=== PATIENT | female | born 1980 | race Caucasian/White ===

== ENCOUNTER 2016-12-16 06:59 | Emergency (ER) | payer OTHER ==
[~2016-12-16] VITALS: Ht 175.3 cm; Wt 100.0 kg
[2016-12-16 07:05] VITALS: BP 141/90; PULSE 72; RESP 20; O2SAT 99
--- NOTE | 2016-12-16 07:26 | ED.REPORT ---
HPI-Abd Pain F Under 40 Date of Service Dec 16, 2016 ED Provider: Jeremiah Mart MD Pt is a 35 year old female with a hx of DM, endometriosis, and extensive hx of kidney stones who presents to the ED with concerns for flnak pain, onset 0500 this morning. She reports that the pain is sharp and located in her left flank and is worsened with urinating. Nothing is able to alleviate the pain. She reports that this pain feels similar to the kidney stones that she has had in the past. Pt reports that she has required multiple surgeries in the past for kidney stones. She admits to nausea, but denies any fevers, vomiting, chest pain , shortness of breath, diarrhea or any other symptoms. Nursing Notes Stated Complaint: LEFT ABDOMINAL PAIN Chief Complaint: Female Abdominal Pain Nursing Notes Reviewed: Yes ([employer] not reconciled) Allergies: Coded Allergies: Penicillins (Verified Allergy, Unknown, hives and vomiting, 12/16/16) Scheduled Tamsulosin (Flomax) 0.4 Mg Capsule 0.4 MG PO DAILY Scheduled PRN Ondansetron ODT (Ondansetron ODT) 8 Mg Tab.rapdis 8 MG PO Q4H PRN PRN For Nausea oxyCODONE-Acetaminophen 5-325 mg (oxyCODONE-Acetaminophen 5-325 mg) 1 Each Tablet 1-2 TAB PO Q6H PRN PRN For Pain General Time Seen by MD: 07:19 Chief Complaint Flank pain left Hx Obtained From: Patient Arrived By: Walk-in Sudden in Onset?: Yes Onset Occurred: 1 - 4 hours ago Symptom Duration: Since onset Progression since Onset: Constant Location: : Flank left Quality: Painful, Sharp Severity: Current: Moderate Severity: Maximum: Severe Similar Sx Previous: Yes Past Medical History Past Medical History Kidney stones Endometriosis Psoriatic arthritis DM Past Surgical History Kidney stone ablasions Ambulatory Status Independent Review of Systems Constitutional: Denies: Chills, Fever, Malaise, Weakness - generalized Respiratory: Denies: Non-productive cough, Shortness of breath, Wheezing Cardiovascular: Denies: Chest pain, Syncope GI: Reports: Nausea, Denies: Abdominal pain, Constipation, Diarrhea, Vomiting Female: Reports: Dysuria, Flank pain, Hematuria, Denies: Urinary frequency, Urinary urgency Musculoskeletal: Denies: Back pain, Extremity pain Complete sys rev & neg: except as marked. Physical Exam Initial Vital Signs Vital Signs (First) Date Time Temp Pulse Resp B/P Pulse Ox O2 Delivery O2 Flow Rate FiO2 12/16/16 07:05 36.6 72 20 141/90 99 Room Air Initial VS: Reviewed, Vital signs normal Head / Eyes: Atraumatic, Normocephalic, PERRL ENT: Mucous membranes moist, Conjunctiva normal, No scleral icterus Neck: Supple, Non-tender, Full range of motion Skin: Warm, Dry, No cyanosis Neurologic: Alert, Oriented, Nonfocal General/Constitutional: Awake, Alert, No acute distress, Cooperative Appearance / Presentation: Positive: Uncomfortable Colicky pain Respiratory / Chest: Atraumatic, Breath sounds NL, Breath sounds = bilat, No respiratory distress Cardiovascular: Heart rate NL, Regular rhythm, Heart sounds NL Abdomen: Atraumatic, Soft Back: Full range of motion Interpretation & Diagnostics Lab Results Interpretation Result Diagram: 12/16/16 0740 Test 12/16/16 07:10 12/16/16 07:40 Urine Color Straw (YELLOW) Urine Appearance Hazy (CLEAR,HAZY) Urine pH 6.0 (5.0-8.0) Urine Specific [place] 1.015 (1.003-1.035) Urine Protein Negativemg/dL (NEG,TRACE) Urine Glucose (UA) >=1000mg/dL (NEGATIVE) Urine Ketones Negativemg/dL (NEGATIVE) Urine Occult Blood Moderate (NEGATIVE) Urine Nitrite Negative (NEGATIVE) Urine Bilirubin Negative (NEGATIVE) Urine Urobilinogen Normalmg/dL (NORMAL) Urine Leukocyte Esterase Negative (NEGATIVE) Urine RBC 3-10/hpf (0-2) Urine WBC 0-5/hpf (0-5) Urine Epithelial Cells Occasional/hpf (NONE-MOD) Urine Crystals None seen (NONE SEEN) Urine Bacteria Few/hpf (NONE-FEW) Urine Hyaline Casts None/lpf (NONE) Urine Granular Casts None seen (NONE SEEN) Urine Waxy Casts None seen (NONE SEEN) Urine Red Blood Cell Casts None seen (NONE SEEN) Urine White Blood Cell Casts None seen (NONE SEEN) Urine Mucus None seen (None Seen) Urine Trichomonas None seen (NONE SEEN) Urine Yeast None (NONE SEEN) Urinalysis Comment None Urine Culture Reflexed Not indicated White Blood Count 6.0th/mm3 (3.8-10.1) Red Blood Count 4.87mil/mm3 (3.90-5.20) Hemoglobin 15.2g/dL (12.0-15.6) Hematocrit 42.3% (35.0-46.0) Mean Corpuscular Volume 86.9fL (81-100) Mean Corpuscular Hemoglobin 31.2pg (27.0-35.0) Mean Corpuscular Hemoglobin Concent 35.9% (32.0-37.0) Red Cell Distribution Width 12.6% (12.3-15.4) Platelet Count 272bil/L (150-400) Neutrophils (%) (Auto) 53.4% (40-74) Lymphocytes (%) (Auto) 31.7% (14-46) Monocytes (%) (Auto) 11.3% (4-12) Eosinophils (%) (Auto) 2.0% (0-5) Basophils (%) (Auto) 1.3% (0-3) Hold Purple Top Tube Received (Received) Hold Blue Top Tube Received (Received) Hold [place] Top Tube Received (Received) Hold Dave Top Tube Received (Received) Lab Results Interpretation: US: IMPRESSION: Minimal left hydronephrosis with 5 mm inferior pole stone. CBC normal Dictated by: Octavia Cisse M.D. on 12/16/2016 at 13:30 Re-Eval/Medical Decision Med Decision/Clinical Course This is a 35-year-old female for long history of kidney stones, although her last kidney stone images were about 3 years ago and she been followed for manager water [facility]. She reports she had a diet that she been following quite well, and not had any kidney stones but has fallen off and now presents with severe left flank pain very suggestive of kidney stones. Exam severe is a moderate pain, along the left flank, but has a soft nontender abdomen. Urine is positive for blood, but negative for markers of infection. This also glucose and Accu-Chek chemistries of glucose which is over 300-patient's a non- it's been a diabetic diet only, and the need for follow-up with her PCP to review was reviewed. She received hydration, pain medicine, and it took a number of doses so an ultrasound was obtained and revealed hydronephrosis and a 5 mm stone, the patient started on tamsulosin. The pain control was achieved. She is being discharged with a follow-up referral to urology, tamsulosin, NSAIDs, and oxycodone. Routine return precautions were reviewed, and the patient was discharged comfortable and much improved condition. Source of Hx: Old records Re-Evaluation/Progress #1: Time of Eval: 09:26 Re-Evaluation/Progress Note: Pt is rechecked. She reports that her pain is well controlled. She is informed of the plan to discharge her at this time with close follow up with her PCP. Strict return precautions given. All questions are addressed. Re-Evaluation/Progress #2: Time of Eval: 13:18 Re-Evaluation/Progress Note: pt is rechecked after ultrasound and informed of her diagnosis and the plan to discharge her at this time. All questions are addressed. Counseled Regarding: Diagnosis, Lab results, Need for follow-up, When/why to return to ED Discharge & Departure Primary Impression: Kidney stone Additional Impression: Hyperglycemia Disposition: Home Discharge Condition All VS Reviewed: Yes Condition: Stable Additional Instructions: 1. Your symptoms and urine suggest your flank pain is from a kidney stone. 2. Your blood sugar is also elevated, and you should follow up with Dr. Guidry to discuss management. 3. Take ibuprofen 400mg-800mg three times a day for pain 4. If needed for more severe pain take oxycodone/APAP 5/325 1-2 tabs up to every 6 hours as needed. NOTE: This medication contains a narcotic and causes drowsiness. NO driving for at least 4 hours as needed after taking. 5. Drink plenty of fluids. 6. Return if new, worsening, or uncontrolled symptoms. Referrals: Kwasi Guidry MD (PCP) [place]ma Attestation Portions of this note were transcribed by Marnie Webber. I, Dr. Mart personally performed the history, physical exam and medical decision-making; I reviewed and confirmed the accuracy of the information in the transcribed note. Signed by: Alma Bernard, 12/16/2016 14:34 copies to: Kwasi Guidry MD, Matthew F MD Dec 16, 2016 07:25 STEW WEBBER Dec 16, 2016 07:35
[2016-12-16] MEDS ORDERED: HYDROmorphone 0.5 mg/0.5 mL iSecure Syringe IVPUSH PRN (07:30)
[2016-12-16] MEDS ORDERED: Ondansetron 2 mg/mL 2 mL Inj IVPUSH ONE ×2 (07:30→10:15)
[2016-12-16 07:43] LABS: APPEARANCE,URINE HAZY (CLEAR,HAZY); COLOR,URINE STRAW (YELLOW); OCCULT BLOOD,URINE MODERATE (NEGATIVE); UROBILINOGEN,URINE NORMAL (NORMAL)
[2016-12-16] MEDS ORDERED: HYDROmorphone 1 mg/mL Inj ONE ×3 (07:51→09:32)
[2016-12-16] MEDS ORDERED: TAMS0.4C98 PO (09:25)
[2016-12-16] MEDS ORDERED: OXYC1TAB24 PO (09:25)
[2016-12-16] MEDS ORDERED: ONDA8TAB10 PO (09:25)
[2016-12-16] MEDS ORDERED: oxyCODONE-Acetamin 5-325 mg Tablet PO ONE ×2 (09:35→14:15)
[2016-12-16 09:38] VITALS: BP 115/68; PULSE 78; RESP 14; O2SAT 97
[2016-12-16] MEDS: HYDROmorphone 1 mg/mL Inj IVPUSH PRN ×2 (12:31→14:39)
--- NOTE | 2016-12-16 13:35 | DRSVH ---
PROCEDURE: US RETROPERITONEAL SONOGRAM ([id number]) INDICATIONS: L Flank pain, h/o stones TECHNIQUE: Real-time scanning was performed of the kidneys and bladder, with image documentation. COMPARISON: None. FINDINGS: Kidneys: Kidneys are normal in size. Right kidney measures 11.5 cm long; left kidney measures 13.5 cm long. Right renal cortical thickness is 1.4 cm; left renal cortical thickness is 1.3 cm. Renal c ortical echotexture is normal. There is a minimal appearance of left hydronephrosis with proximate 5 mm stone identified in the lower pole. No suspicious solid mass lesions. Bladder: Pre-void bladder volume is 0 mL. Post-void residual is 0 mL. Pre-void images demonstrate no intraluminal masses or stones. On pre-void images, neither ureteral jets are noted with color Dop pler interrogation. (Of note, ureteral jets may not be detectable in up to 25% of cases due to insuf ficient differences in specific gravity between ureteral and bladder urine). Miscellaneous: No free pelvic fluid. IMPRESSION: Minimal left hydronephrosis with 5 mm inferior pole stone. Dictated by: Octavia Cisse M.D. on 12/16/2016 at 13:30 Approved by: Octavia Cisse M.D. on 12/16/2016 at 13:33
[2016-12-16 14:00] VITALS: BP 107/55; PULSE 73; RESP 20; O2SAT 99
[2016-12-16 14:42] LABS: BASOPHILS % (AUTO) 1.3 % (0-3); MONOCYTES % (AUTO) 11.3 % (4-12); Mean Corpuscular Hemoglobin 31.2 pg (27.0-35.0); Mean Corpuscular Volume 86.9 fL (81-100); NEUTROPHILS % (AUTO) 53.4 % (40-74); Platelet Count 272 bil/L (150-400)
== END 2016-12-16 14:20 | disposition home or self-care (01) ==
LOC: SED 06:59
DX: N20.0 Calculus of kidney (principal); E11.65 Type 2 diabetes mellitus with hyperglycemia; Z87.442 Personal history of urinary calculi; Z88.0 Allergy status to penicillin
CPT/HCPCS: 76770; 80053; 81000; 81025; 82948; 85025; 96374; 96375; 96376; 99285; J1170; J1885; J2405